=== PATIENT | female | born 1960 | race Caucasian/White ===

== ENCOUNTER 2021-05-12 20:58 | Emergency (ER) | payer OTHER ==
[2021-05-12] MEDS ORDERED: Ondansetron 4 MG Tab.DIS PO ONE (21:07)
[2021-05-12] MEDS ORDERED: Acetaminophen/HYDROcodone 325-5 MG Tab PO ONE (21:08)
[2021-05-12] MEDS ORDERED: Morphine 4 MG/ML VIAL IM STA (21:41)
== END 2021-05-12 21:53 | disposition home or self-care (01) ==
LOC: FB.ED 20:58
DX: K80.20 Calculus of gallbladder without cholecystitis without obstruction (principal); Z88.0 Allergy status to penicillin; Z88.2 Allergy status to sulfonamides; Z88.5 Allergy status to narcotic agent; Z91.011 Allergy to milk products; Z88.7 Allergy status to serum and vaccine; Z88.8 Allergy status to other drugs, medicaments and biological substances
CPT/HCPCS: 96372; 99283; A9270; J2270; Q0162

== ENCOUNTER 2021-05-14 10:29 | Day surgery (SDC) | payer OTHER ==
[2021-05-14] MEDS ORDERED: Dexmedetomidine 200 MCG/2 ML SDV IV ONE (10:30)
[2021-05-14] MEDS ORDERED: Lactated Ringers 1,000 ML IV ONE (10:30)
[2021-05-14] MEDS ORDERED: Propofol 200 MG/20 ML SDV IV ONE ×2 (10:30)
[2021-05-14] MEDS ORDERED: Glycopyrrolate 0.2 MG/ML 5 ML MDV IV ONE (10:30)
[2021-05-14] MEDS ORDERED: Rocuronium 100 MG/10 ML MDV IV ONE (10:30)
[2021-05-14] MEDS ORDERED: Ketorolac 30 MG/ML SDV IVPUSH ONE (10:30)
[2021-05-14] MEDS ORDERED: Sodium Chloride 0.9% 10 ML Syringe FLUSH PRN (10:30)
[2021-05-14] MEDS ORDERED: diphenhydrAMINE 50 MG/ML SDV IVPUSH ONE (10:30)
[2021-05-14] MEDS ORDERED: HYDROmorphone 2 MG/ML SDV IV ONE (10:30)
[2021-05-14] MEDS ORDERED: fentaNYL 100 MCG/2 ML SDV IV ONE (10:30)
[2021-05-14] MEDS ORDERED: Lidocaine 1% PF 2 ML SDV INJECT ONE (10:30)
[2021-05-14] MEDS ORDERED: Ondansetron 4 MG/2 ML SDV IVPUSH ONE (10:30)
[2021-05-14] MEDS ORDERED: Midazolam 1 MG/ML 2 ML SDV IV ONE (10:30)
[2021-05-14] MEDS ORDERED: Dexamethasone 4 MG/ML 5 ML MDV IVPUSH ONE (10:30)
[2021-05-14] MEDS ORDERED: Neostigmine Methylsulfate 10 MG/10 ML MDV IVPUSH ONE (10:30)
[2021-05-14] MEDS: Lactated Ringers 1,000 ML IV SCH ×2 (11:55→21:48)
[2021-05-14] MEDS ORDERED: Ciprofloxacin in D5W 400 MG in Premix Bag 1 BAG IV ONE ×2 (12:12)
[2021-05-14] MEDS ORDERED: Bupivacaine 0.5%/EPINEPHrine 1:200,000 10 ML SDV INJECT ONE (12:53)
[2021-05-14] MEDS ORDERED: HYDROmorphone 2 MG/ML SDV IVPUSH ONE (16:45)
[2021-05-14] MEDS: Ketorolac 30 MG/ML SDV IVPUSH SCH (20:21)
[2021-05-14] MEDS: Ondansetron 4 MG/2 ML SDV IVPUSH PRN (20:29)
[2021-05-14] MEDS ORDERED: Gabapentin 600 MG Tab PO SCH (21:00)
[2021-05-14] MEDS: HYDROmorphone 2 MG/ML SDV IVPUSH PRN (21:49)
[2021-05-14] MEDS: diphenhydrAMINE 25 MG Cap PO PRN (23:03)
[2021-05-15] MEDS: Ketorolac 30 MG/ML SDV IVPUSH SCH ×3 (02:03→12:38)
[2021-05-15] MEDS: Ondansetron 4 MG/2 ML SDV IVPUSH PRN ×2 (02:05→07:32)
[2021-05-15] MEDS: HYDROmorphone 2 MG/ML SDV IVPUSH PRN ×4 (03:07→14:20)
[2021-05-15] MEDS: Lactated Ringers 1,000 ML IV SCH (09:21)
[2021-05-15] MEDS: Acetaminophen/HYDROcodone 325-5 MG Tab PO PRN ×2 (09:38→13:38)
[2021-05-15] MEDS: diphenhydrAMINE 25 MG Cap PO PRN (12:42)
== END 2021-05-15 15:35 | disposition home or self-care (01) ==
LOC: FB.SDS 10:29 → FB.MS 14:27 → FB.SDS 05-15 15:35
PROVIDERS: ATTEND Surgery
DX: K82.8 Other specified diseases of gallbladder (principal); J45.909 Unspecified asthma, uncomplicated; G43.909 Migraine, unspecified, not intractable, without status migrainosus; F41.9 Anxiety disorder, unspecified; Z98.890 Other specified postprocedural states
CPT/HCPCS: 00790-QZ; 36415; 80053; 88304; 94150; A9270-GY; J0744; J1100; J1170; J1200; J1885; J2250; J2405; J2704; J2710; J3010; J3490; J7120